=== PATIENT | male | born 1965 | race Caucasian/White ===

== ENCOUNTER 2018-01-10 12:41 | Inpatient (IN) | payer MEDICARE, OTHER ==
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
[2018-01-10] MEDS ORDERED: Haloperidol Lactate 5 mg/mL 1mL Vial IM STA (20:09)
[2018-01-10] MEDS ORDERED: Haloperidol Lactate 5 mg/mL 1mL Vial ONE (20:11)
[2018-01-10] MEDS ORDERED: Haloperidol Lactate 5 mg/mL 1mL Vial IM ONE (20:58)
[2018-01-10 21:25] VITALS: BP 132/80
[2018-01-10] MEDS ORDERED: Albuterol/Ipratropium Neb 3 ML AERS HHN PRN (22:37)
[2018-01-10] MEDS ORDERED: Non-Formulary Item 1 EA (Dextran 70/Hypromellose [Artificial Tears] 1 EACH) OP PRN (22:37)
[2018-01-10] MEDS ORDERED: Magnesium Hydroxide (MOM) 30 mL UDC PO PRN (22:37)
[2018-01-10] MEDS ORDERED: Maalox 30 mL Cup PO PRN (22:37)
[2018-01-10] MEDS: Acetaminophen 500 MG TAB PO PRN (23:10)
[2018-01-11] MEDS: risperiDONE 4 mg Tab PO SCH ×2 (09:10→17:02)
[2018-01-11] MEDS: Multivitamin w/ Minerals Tab PO SCH (09:10)
[2018-01-11] MEDS: Benztropine 1 MG TAB PO SCH ×2 (09:10→17:02)
--- NOTE | 2018-01-11 09:15 | History and Physical ---
History of Present Illness - HPI Chief Complaint: Increased in agitation HPI: This is a [facility]. He was send for evaluation due to increased in agitation. Vital Signs: Last Vital Signs Temp 97.7 F 01/11/18 06:42 Pulse 70 01/11/18 07:39 Resp 20 01/11/18 07:39 BP 115/67 01/11/18 06:42 Pulse Ox 95 01/11/18 07:39 Past Medical History Pulmonary: Report: Asthma BOARDMARKER: Report: Other (Schizophrenia) GI: Report: No Pertinent Hx Psych: Report: Schizophrenia Musculoskeletal: Report: Osteoarthritis, Weakness Infectious Disease: Report: No Pertinent Hx Renal/: Report: No Pertinent Hx Endocrine: Report: No Pertinent Hx Dermatology: Report: No Pertinent Hx - Past Surgical History Past Surgical History: No pertinent Hx Family Medical History - Family Member Mother History Unknown: Yes Social History Smoke: No Alcohol: None Drugs: None Lives: Intermediate Domestic Violence: Negative - Medications Home Medications: Home Medication Medication Instructions Recorded Type Acetaminophen [Tylenol Extra 500 mg PO Q4HR PRN 01/10/18 History Strength] Albuterol/Ipratropium Neb [Duoneb 3 ml HHN Q4HR PRN 01/10/18 History Neb] Ascorbic Acid [Vitamin C] 500 mg PO BID 01/10/18 History Aspirin EC [Ecotrin] 81 mg PO DAILY 01/10/18 History Baclofen [Lioresal*] 10 mg PO QID 01/10/18 History Benztropine [Cogentin*] 1 mg PO BID 01/10/18 History Bisacodyl 10 mg RC DAILY PRN 01/10/18 History Dextran 70/Hypromellose 1 each OP Q4H PRN 01/10/18 History [Artificial Tears] Mag Hydrox/Al Hydrox/Simeth 30 ml PO Q4H PRN 01/10/18 History [Maalox Advanced 355 ml] Magnesium Hydroxide [Milk of 30 ml PO DAILY PRN 01/10/18 History Magnesia] Multivitamin w/ Minerals 1 tab PO DAILY 01/10/18 History [Theragran M] Naproxen 250 mg PO Q4H PRN 01/10/18 History Niacin 500 mg PO HS 01/10/18 History OXcarbazepine [Trileptal] 150 mg PO Q12H 01/10/18 History Risperidone 4 mg PO BID 01/10/18 History Trazodone HCl 50 mg PO HS 01/10/18 History - Allergies Allergies/Adverse Reactions: Allergies Allergy/AdvReac Type Severity Reaction Status Date / Time clonazepam Allergy Verified 01/10/18 14:22 Review of Systems - Review of Systems Constitutional: Report: No Significant Eyes: Report: No Significant ENT: Report: No Significant Respiratory: Report: No Significant Cardiovascular: Report: No Significant Gastrointestinal: Report: No Significant Genitourinary: Report: No Significant Musculoskeletal: Report: No Significant Skin: Report: No Significant Neurological: Report: No Significant Physical Exam - Physical Exam HEENT: Report: Ears Nose Throat within normal limits Neck: Report: Within normal limits Cardiovascular Systems: Report: Regular, Rate and Rhythm Respiratory: Report: Breath Sounds are within normal limits Abdomen: Report: Non-tender to palpation Back: Report: Inspection of back is within normal limits. Extremities: Report: Non-tender to palpation. Skin: Report: Color of skin is within normal limits Neuro/Psych: Report: Disoriented to name time or place - Assessment Assessment: Current Active Problems Problem Status Onset AGGITATION AND DISRUPTIVE BEHAVIOR Acute Patient is awake, alert, calm. Dx: Increased in agitation, Psychosis, schizophrenia Asthma, Obesity - Plan Plan: Patient is under Psychiatric care, continue with SNF meds, Will continue to monitor.
[2018-01-11 19:52] LABS: % BASOPHILS 0.8 % (0.0-2.0); % EOSINOPHILS 3.2 % (0.0-5.0); % LYMPHOCYTES 32.8 % (20.0-50.0); % MONOCYTES 8.9 % (2.0-10.0); % NEUTROPHILS 54.3 % (40.0-80.0); BASOPHILE ABSOLUTE 0.1 Th/cumm (0-0.2); EOSINOPHILE ABSOLUTE 0.2 Th/cmm (0.1-0.4); HEMATOCRIT 38.5 % (41.0-60); HEMOGLOBIN 13.2 gm/dL (12-16); LYMPHOCYTE ABSOLUTE 2.4 Th/cmm (1.5-3.0); MEAN CELL VOLUME 90.9 fl (80-99); MEAN CORPUSCULAR HEMOGLOBIN 31.1 pg (26.0-30.0); MEAN CORPUSCULAR HGB CONC 34.2 pg (28.0-36.0); MEAN PLATELET VOLUME 6.8 fl; MONOCYTE ABSOLUTE 0.7 Th/cmm (0.3-1.0); PLATELET COUNT 267 Th/cmm (150-400); RED BLOOD COUNT 4.23 Mil/cmm (4.30-5.70); RED CELL DISTRIBUTION WIDTH 12.1 % (11.5-20.0); WHITE BLOOD COUNT 7.4 Th/cmm (4.8-10.8)
[2018-01-11 20:05] LABS: INR 0.91 (0.5-1.4); PROTHROMBIN TIME (TEST) 9.5 SECONDS (9.5-11.5)
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
[2018-01-12 08:18] LABS: % BASOPHILS 0.5 % (0.0-2.0); % LYMPHOCYTES 30.5 % (20.0-50.0); % MONOCYTES 8.3 % (2.0-10.0); % NEUTROPHILS 58.7 % (40.0-80.0); EOSINOPHILE ABSOLUTE 0.1 Th/cmm (0.1-0.4); HEMATOCRIT 40.7 % (41.0-60); HEMOGLOBIN 13.8 gm/dL (12-16); MEAN CELL VOLUME 91.3 fl (80-99); MEAN CORPUSCULAR HEMOGLOBIN 30.9 pg (26.0-30.0); MEAN CORPUSCULAR HGB CONC 33.9 pg (28.0-36.0); MEAN PLATELET VOLUME 7.2 fl; MONOCYTE ABSOLUTE 0.6 Th/cmm (0.3-1.0); PLATELET COUNT 269 Th/cmm (150-400); RED BLOOD COUNT 4.45 Mil/cmm (4.30-5.70); RED CELL DISTRIBUTION WIDTH 12.3 % (11.5-20.0); WHITE BLOOD COUNT 6.7 Th/cmm (4.8-10.8)
[2018-01-12] MEDS: Polyvinyl Alcohol Ophth Soln 15 mL Bottle EACH EYE PRN (08:19)
[2018-01-12] MEDS: Multivitamin w/ Minerals Tab PO SCH (08:20)
[2018-01-12] MEDS: risperiDONE 4 mg Tab PO SCH ×2 (08:20→16:45)
[2018-01-12] MEDS: Benztropine 1 MG TAB PO SCH ×2 (08:20→16:44)
[2018-01-12 08:44] LABS: ALB/GLOB RATIO 1.5 (1.0-1.8); ALBUMIN 4.3 gm/dL (4.2-5.5); ALKALINE PHOSPHATASE 46 U/L (34-104); ANION GAP 9.7 (7.0-16.0); BILIRUBIN,TOTAL 0.5 mg/dL (0.3-1.0); BUN - UREA NITROGEN 9 mg/dL (7-25); CALCIUM SERUM 9.6 mg/dL (8.6-10.3); CARBON DIOXIDE 28.7 mEq/L (21.0-31.0); CHLORIDE 100 mEq/L (98-107); CREATININE - SERUM 0.8 mg/dL (0.7-1.3); GFR AFRICAN-AMERICAN > 60.0 ml/min (>90); GFR NON AFRICAN-AMERICAN > 60.0 ml/min; GLUCOSE 116 mg/dL (70-105); POTASSIUM SERUM 3.4 mEq/L (3.5-5.1); SGOT 16 U/L (13-39); SGPT/ALT 11 U/L (7-52); SODIUM SERUM 135 mEq/L (136-145); TOTAL PROTEIN,SERUM 7.1 gm/dL (6.0-8.3)
--- NOTE | 2018-01-12 09:27 | General Progress Note ---
Subjective - Review of Systems Service Date: 01/12/18 Subjective: I want go home Objective - Results Result Diagrams: 01/12/18 07:00 01/12/18 07:00 Recent Labs: Laboratory Last Values WBC 6.7 Th/cmm (4.8-10.8) 01/12/18 07:00 RBC 4.45 Mil/cmm (4.30-5.70) 01/12/18 07:00 Hgb 13.8 gm/dL (12-16) 01/12/18 07:00 Hct 40.7 % (41.0-60) L 01/12/18 07:00 MCV 91.3 fl (80-99) 01/12/18 07:00 MCH 30.9 pg (26.0-30.0) H 01/12/18 07:00 MCHC Differential 33.9 pg (28.0-36.0) 01/12/18 07:00 RDW 12.3 % (11.5-20.0) 01/12/18 07:00 Plt Count 269 Th/cmm (150-400) 01/12/18 07:00 MPV 7.2 fl 01/12/18 07:00 Neutrophils % 58.7 % (40.0-80.0) 01/12/18 07:00 Lymphocytes % 30.5 % (20.0-50.0) 01/12/18 07:00 Monocytes % 8.3 % (2.0-10.0) 01/12/18 07:00 Eosinophils % 2.0 % (0.0-5.0) 01/12/18 07:00 Basophils % 0.5 % (0.0-2.0) 01/12/18 07:00 PT 9.5 SECONDS (9.5-11.5) 01/11/18 19:35 INR 0.91 (0.5-1.4) 01/11/18 19:35 PTT (Actin FS) 28.0 SECONDS (26.0-38.0) 01/11/18 19:35 Sodium 135 mEq/L (136-145) L 01/12/18 07:00 Potassium 3.4 mEq/L (3.5-5.1) L 01/12/18 07:00 Chloride 100 mEq/L (98-107) 01/12/18 07:00 Carbon Dioxide 28.7 mEq/L (21.0-31.0) 01/12/18 07:00 Anion Gap 9.7 (7.0-16.0) 01/12/18 07:00 BUN 9 mg/dL (7-25) 01/12/18 07:00 Creatinine 0.8 mg/dL (0.7-1.3) 01/12/18 07:00 Est GFR ( Amer) > 60.0 ml/min (>90) 01/12/18 07:00 Est GFR (Non-Af Amer) > 60.0 ml/min 01/12/18 07:00 BUN/Creatinine Ratio 11.3 01/12/18 07:00 Glucose 116 mg/dL (70-105) H 01/12/18 07:00 Calcium 9.6 mg/dL (8.6-10.3) 01/12/18 07:00 Total Bilirubin 0.5 mg/dL (0.3-1.0) 01/12/18 07:00 AST 16 U/L (13-39) 01/12/18 07:00 ALT 11 U/L (7-52) 01/12/18 07:00 Alkaline Phosphatase 46 U/L (34-104) 01/12/18 07:00 C-Reactive Protein 4.2 mg/dL (0.0-0.9) H 01/11/18 19:35 Total Protein 7.1 gm/dL (6.0-8.3) 01/12/18 07:00 Albumin 4.3 gm/dL (4.2-5.5) 01/12/18 07:00 Globulin 2.8 gm/dL 01/12/18 07:00 Albumin/Globulin Ratio 1.5 (1.0-1.8) 01/12/18 07:00 TSH 2.10 uIU/ml (0.34-5.60) 01/12/18 07:00 - Physical Exam Vitals and I&O: Vital Signs Temp 97.9 F 01/12/18 05:50 Pulse 58 01/12/18 05:50 Resp 20 01/12/18 05:50 BP 129/64 01/12/18 05:50 Pulse Ox 100 01/12/18 05:50 Intake & Output 01/11/18 01/12/1801/12/18 18:59 06:59 18:59 Intake Total 240 Balance 240 Weight (lbs) 129.274 kg Intake: Oral 240 Other: # Voids 3 # Bowel Movements 0 Active Medications: Current Medications Acetaminophen (Tylenol Extra Strength) 500 mg PO Q4HR PRN PRN Reason: MILD PAIN Stop: 03/11/18 22:36 Last Admin: 01/10/18 23:10 Dose: 500 mg Al Hydrox/Mg Hydrox/Simethicone (Maalox) 30 ml PO Q4H PRN PRN Reason: Heartburn Stop: 03/11/18 22:36 Albuterol/Ipratropium (Duoneb Neb) 3 ml HHN Q4HR PRN PRN Reason: COPD Stop: 03/11/18 22:36 Artificial Tears (Artificial Tears Ophth Soln) 1 drop EACH EYE Q4HR PRN PRN Reason: Dry Eye Stop: 03/12/18 11:03 Last Admin: 01/12/18 08:19 Dose: 1 drop Ascorbic Acid (Vitamin C) 500 mg PO BID HERMILO Stop: 03/12/18 08:59 Last Admin: 01/12/18 08:20 Dose: 500 mg Aspirin (Ecotrin) 81 mg PO DAILY HERMILO Stop: 03/12/18 08:59 Last Admin: 01/12/18 08:20 Dose: 81 mg Baclofen (Lioresal) 10 mg PO QID HERMILO Stop: 03/12/18 08:59 Last Admin: 01/12/18 08:20 Dose: 10 mg Benztropine Mesylate (Cogentin) 1 mg PO BID HERMILO Stop: 03/12/18 08:59 Last Admin: 01/12/18 08:20 Dose: 1 mg Bisacodyl (Dulcolax 10 Mg Supp) 10 mg RC DAILY PRN PRN Reason: Constipation Stop: 03/11/18 22:36 Magnesium Hydroxide (Milk Of Magnesia) 30 ml PO DAILY PRN PRN Reason: Constipation Stop: 03/11/18 22:36 Naproxen (Naprosyn) 250 mg PO Q4H PRN PRN Reason: MOD PAIN Stop: 03/11/18 22:36 Niacin (Vitamin B3) 500 mg PO HS HERMILO Stop: 03/12/18 20:59 Last Admin: 01/11/18 21:58 Dose: 500 mg Oxcarbazepine (Trileptal) 150 mg PO Q12H HERMILO PRN Reason: Protocol Stop: 03/11/18 22:44 Last Admin: 01/11/18 23:00 Dose: 150 mg Risperidone (Risperdal) 4 mg PO BID HERMILO PRN Reason: Protocol Stop: 03/12/18 08:59 Last Admin: 01/12/18 08:20 Dose: 4 mg Trazodone HCl (Desyrel) 50 mg PO HS HERMILO PRN Reason: Protocol Stop: 03/12/18 20:59 Last Admin: 01/11/18 21:58 Dose: 50 mg Zolpidem Tartrate (Ambien) 5 mg PO HS PRN PRN Reason: Insomnia Stop: 03/11/18 21:04 General: Alert, Other (Confused) HEENT: Atraumatic, PERRLA Neck: Supple Cardiovascular: Regular rate Lungs: Clear to auscultation Abdomen: Bowel sounds, Soft Neurological: Normal gait Skin: Other (Warm and dry) Psych/Mental Status: Other (Confused, not oriented) Assessment/Plan - Problem List Patient Problems: All Active Problems AGGITATION AND DISRUPTIVE BEHAVIOR (Acute) - Assessment Assessment: Current Active Problems Problem Status Onset AGGITATION AND DISRUPTIVE BEHAVIOR Acute Patient is awake, alert, calm. Dx: Increased in agitation, Psychosis, schizophrenia Asthma, Obesity. - Plan Plan: Patient is under Psychiatric care, continue with SNF meds, Will continue to monitor.
--- NOTE | 2018-01-13 03:57 | Progress Notes ---
DATE: 01/12/2018 PSYCHIATRIC PROGRESS NOTE Staff was spoken. The patient is interviewed. Mood is noted to be irritable. Affect is constricted. Insight and judgment at this time are noted to be still impaired. Impulse control is noted to be poor. Coping skills are noted to be very poor. The patient is being currently maintained on Risperdal and oxcarbazepine, but continues to be irritable and angry and is very-very unpredictable, impulsive and hence the patient is not ready to be discharged to a lower level of care. The patient is going to be closely monitored and followed up. JOB# [id number]
[2018-01-13] MEDS: risperiDONE 4 mg Tab PO SCH ×2 (09:29→17:30)
[2018-01-13] MEDS: Benztropine 1 MG TAB PO SCH ×2 (09:30→17:30)
[2018-01-13] MEDS: Multivitamin w/ Minerals Tab PO SCH (09:30)
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
[2018-01-13] MEDS: Acetaminophen 500 MG TAB PO PRN (21:41)
--- NOTE | 2018-01-14 05:31 | Progress Notes ---
DATE: 01/13/2018 PSYCHIATRIC PROGRESS NOTE SUBJECTIVE: Staff was spoken to. The patient is interviewed. Mood is irritable. Affect is constricted. Coping skills at this time to be poor. Insight and judgment are noted to be poor. The patient has been having difficult time to cope with the stress. Impulsivity is the major concern. The patient is reporting that he has talked with someone, because he did not agree with whatever they were saying. ASSESSMENT: The patient is still impulsive. PLAN: To continue patient with the current medications and follow up with the supportive therapy. JOB# [id number]
[2018-01-14] MEDS: Multivitamin w/ Minerals Tab PO SCH (08:59)
[2018-01-14] MEDS: Benztropine 1 MG TAB PO SCH ×2 (08:59→16:21)
[2018-01-14] MEDS: risperiDONE 4 mg Tab PO SCH ×2 (08:59→16:21)
[2018-01-14] MEDS: Polyvinyl Alcohol Ophth Soln 15 mL Bottle EACH EYE PRN (09:00)
--- NOTE | 2018-01-14 09:06 | General Progress Note ---
Subjective - Review of Systems Service Date: 01/14/18 Subjective: I want go home Objective - Results Result Diagrams: 01/12/18 07:00 01/12/18 07:00 Recent Labs: Laboratory Last Values WBC 6.7 Th/cmm (4.8-10.8) 01/12/18 07:00 RBC 4.45 Mil/cmm (4.30-5.70) 01/12/18 07:00 Hgb 13.8 gm/dL (12-16) 01/12/18 07:00 Hct 40.7 % (41.0-60) L 01/12/18 07:00 MCV 91.3 fl (80-99) 01/12/18 07:00 MCH 30.9 pg (26.0-30.0) H 01/12/18 07:00 MCHC Differential 33.9 pg (28.0-36.0) 01/12/18 07:00 RDW 12.3 % (11.5-20.0) 01/12/18 07:00 Plt Count 269 Th/cmm (150-400) 01/12/18 07:00 MPV 7.2 fl 01/12/18 07:00 Neutrophils % 58.7 % (40.0-80.0) 01/12/18 07:00 Lymphocytes % 30.5 % (20.0-50.0) 01/12/18 07:00 Monocytes % 8.3 % (2.0-10.0) 01/12/18 07:00 Eosinophils % 2.0 % (0.0-5.0) 01/12/18 07:00 Basophils % 0.5 % (0.0-2.0) 01/12/18 07:00 PT 9.5 SECONDS (9.5-11.5) 01/11/18 19:35 INR 0.91 (0.5-1.4) 01/11/18 19:35 PTT (Actin FS) 28.0 SECONDS (26.0-38.0) 01/11/18 19:35 Sodium 135 mEq/L (136-145) L 01/12/18 07:00 Potassium 3.4 mEq/L (3.5-5.1) L 01/12/18 07:00 Chloride 100 mEq/L (98-107) 01/12/18 07:00 Carbon Dioxide 28.7 mEq/L (21.0-31.0) 01/12/18 07:00 Anion Gap 9.7 (7.0-16.0) 01/12/18 07:00 BUN 9 mg/dL (7-25) 01/12/18 07:00 Creatinine 0.8 mg/dL (0.7-1.3) 01/12/18 07:00 Est GFR ( Amer) > 60.0 ml/min (>90) 01/12/18 07:00 Est GFR (Non-Af Amer) > 60.0 ml/min 01/12/18 07:00 BUN/Creatinine Ratio 11.3 01/12/18 07:00 Glucose 116 mg/dL (70-105) H 01/12/18 07:00 Calcium 9.6 mg/dL (8.6-10.3) 01/12/18 07:00 Total Bilirubin 0.5 mg/dL (0.3-1.0) 01/12/18 07:00 AST 16 U/L (13-39) 01/12/18 07:00 ALT 11 U/L (7-52) 01/12/18 07:00 Alkaline Phosphatase 46 U/L (34-104) 01/12/18 07:00 C-Reactive Protein 4.2 mg/dL (0.0-0.9) H 01/11/18 19:35 Total Protein 7.1 gm/dL (6.0-8.3) 01/12/18 07:00 Albumin 4.3 gm/dL (4.2-5.5) 01/12/18 07:00 Globulin 2.8 gm/dL 01/12/18 07:00 Albumin/Globulin Ratio 1.5 (1.0-1.8) 01/12/18 07:00 TSH 2.10 uIU/ml (0.34-5.60) 01/12/18 07:00 - Physical Exam Vitals and I&O: Vital Signs Temp 96.6 F 01/13/18 13:51 Pulse 74 01/14/18 07:15 Resp 18 01/14/18 07:15 BP 123/73 01/13/18 13:51 Pulse Ox 96 01/14/18 07:15 Intake & Output 01/13/18 01/14/1801/14/18 18:59 06:59 18:59 Intake Total 1200 Balance 1200 Intake: Oral 1200 Other: # Voids 3 # Bowel Movements 1 Active Medications: Current Medications Acetaminophen (Tylenol Extra Strength) 500 mg PO Q4HR PRN PRN Reason: MILD PAIN Stop: 03/11/18 22:36 Last Admin: 01/13/18 21:41 Dose: 500 mg Al Hydrox/Mg Hydrox/Simethicone (Maalox) 30 ml PO Q4H PRN PRN Reason: Heartburn Stop: 03/11/18 22:36 Albuterol/Ipratropium (Duoneb Neb) 3 ml HHN Q4HR PRN PRN Reason: COPD Stop: 03/11/18 22:36 Last Admin: 01/12/18 21:55 Dose: 3 ml Artificial Tears (Artificial Tears Ophth Soln) 1 drop EACH EYE Q4HR PRN PRN Reason: Dry Eye Stop: 03/12/18 11:03 Last Admin: 01/14/18 09:00 Dose: 1 drop Ascorbic Acid (Vitamin C) 500 mg PO BID [facility] Stop: 03/12/18 08:59 Last Admin: 01/14/18 08:59 Dose: 500 mg Aspirin (Ecotrin) 81 mg PO DAILY [facility] Stop: 03/12/18 08:59 Last Admin: 01/14/18 08:59 Dose: 81 mg Baclofen (Lioresal) 10 mg PO QID [facility] Stop: 03/12/18 08:59 Last Admin: 01/14/18 08:59 Dose: 10 mg Benztropine Mesylate (Cogentin) 1 mg PO BID [facility] Stop: 03/12/18 08:59 Last Admin: 01/14/18 08:59 Dose: 1 mg Bisacodyl (Dulcolax 10 Mg Supp) 10 mg RC DAILY PRN PRN Reason: Constipation Stop: 03/11/18 22:36 Magnesium Hydroxide (Milk Of Magnesia) 30 ml PO DAILY PRN PRN Reason: Constipation Stop: 03/11/18 22:36 Naproxen (Naprosyn) 250 mg PO Q4H PRN PRN Reason: MOD PAIN Stop: 03/11/18 22:36 Niacin (Vitamin B3) 500 mg PO HS [facility] Stop: 03/12/18 20:59 Last Admin: 01/13/18 21:08 Dose: Not Given Oxcarbazepine (Trileptal) 150 mg PO Q12H HERMILO PRN Reason: Protocol Stop: 03/11/18 22:44 Last Admin: 01/13/18 22:56 Dose: 150 mg Risperidone (Risperdal) 4 mg PO BID [facility] PRN Reason: Protocol Stop: 03/12/18 08:59 Last Admin: 01/14/18 08:59 Dose: 4 mg Trazodone HCl (Desyrel) 50 mg PO HS HERMILO PRN Reason: Protocol Stop: 03/12/18 20:59 Last Admin: 01/13/18 21:08 Dose: Not Given Zolpidem Tartrate (Ambien) 5 mg PO HS PRN PRN Reason: Insomnia Stop: 03/11/18 21:04 General: Alert, Other (Confused) HEENT: Atraumatic, PERRLA Neck: Supple Cardiovascular: Regular rate Lungs: Clear to auscultation Abdomen: Bowel sounds, Soft Neurological: Normal gait Skin: Other (Warm and dry) Psych/Mental Status: Other (Confused, not oriented) Assessment/Plan - Problem List Patient Problems: All Active Problems AGGITATION AND DISRUPTIVE BEHAVIOR (Acute) - Assessment Assessment: Current Active Problems Problem Status Onset AGGITATION AND DISRUPTIVE BEHAVIOR Acute Patient is awake, alert, calm. Dx: Increased in agitation, Psychosis, schizophrenia Asthma, Obesity. - Plan Plan: Patient is under Psychiatric care, continue with SNF meds, Will continue to monitor. Nutritional Asmnt/Malnutr-PDOC - Dietary Evaluation Malnutrition Findings (Please click <Entered> for more info): Nutritional Asmnt/Malnutrition Start: 01/12/18 17: 19 Text: Status: Complete Freq: Document 01/12/18 17:19 LCHENG (Rec: 01/12/18 17:25 [email or web address]) Nutritional Asmnt/Malnutrition Patient General Information Nutritional Screening Moderate Risk Consult Pertinent Medical Hx/Surgical Hx schizophrenia, OA, weakness, asthma Subjective Information Consult received for wound. Pt seen resting in bed at time of visit. Per EMR, PO intake 100% so fat. Spoke with RN, pt has no problem of eating. Current Diet Order/ Nutrition Support mech soft chopped Pertinent Medications cit C, vit B3 Pertinent Labs 01/12 Na 135, K 3.4, glucose 116 Nutritional Hx/Data Height 1.91 m Height (Calculated Centimeters) 190.5 Current Weight (lbs) 129.274 kg Weight (Calculated Kilograms) 129.3 Weight (Calculated Grams) 869600.8 [place] Body Weight 196 Body Mass Index (BMI) 35.6 Weight Status Obese GI Symptoms GI Symptoms None Last BM 0 Difficult in: None Skin Integrity/Comment: right foot wound-acute on chronic wuond Current %PO Good (75-100%) Estimated Nutritional Goals BEE in Kcals: Adj wt of IBW Calories/Kcals/Kg 25-30 Kcals Calculated 0346-9305 Protein: Adj wt of IBW Protein g/k Protein Calculated 99 Fluid: ml 2475-2970ml (1ml/kcal) Nutritional Problem 1. Problem Problem increased nutrition needs ( protein( Etiology increased metabolic demand for wound healing Signs/Symptoms: acute on chronic wound on right foot Malnutrition Alert Protein-Calorie Malnutrition N/A Is there a minimum of two criteria No selected? Query Text:Check all the applicable criteria. A minimum of two criteria are recommended for diagnosis of either severe or non-severe malnutrition. Intervention/Recommendation Comments 1. Continue with current diet as ordered. 2. Monitor PO intake, wt, labs and skin integrity 3. F/U as low risk in 7 dyas, 01/19, PO check 01/14 Expected Outcomes/Goals Expected Outcomes/Goals 1. PO intake to meet at least 75% of nutritional needs. 2. Wt stability, skin to remain intact, labs to approach WNL.
[2018-01-14] MEDS: Acetaminophen 500 MG TAB PO PRN (19:05)
--- NOTE | 2018-01-14 22:30 | Progress Notes ---
DATE: 01/14/2018 Staff was spoken to. The patient is interviewed. Mood is noted to be irritable. Affect is constricted. Insight and judgment at this time are noted to be still impaired. Impulse control is noted to be poor. Coping skills are also noted to be very poor. The patient has been having acute mood swings. The patient is still impulsive and is not able to contract for safety, in view of his impulsivity, it is decided to increase the dose on the Trileptal to 300 mg twice a day and follow the patient with the supportive therapy. JOB# [id number]
--- NOTE | 2018-01-15 09:00 | General Progress Note ---
Subjective - Review of Systems Service Date: 01/15/18 Subjective: I want go home Objective - Results Result Diagrams: 01/12/18 07:00 01/12/18 07:00 Recent Labs: Laboratory Last Values WBC 6.7 Th/cmm (4.8-10.8) 01/12/18 07:00 RBC 4.45 Mil/cmm (4.30-5.70) 01/12/18 07:00 Hgb 13.8 gm/dL (12-16) 01/12/18 07:00 Hct 40.7 % (41.0-60) L 01/12/18 07:00 MCV 91.3 fl (80-99) 01/12/18 07:00 MCH 30.9 pg (26.0-30.0) H 01/12/18 07:00 MCHC Differential 33.9 pg (28.0-36.0) 01/12/18 07:00 RDW 12.3 % (11.5-20.0) 01/12/18 07:00 Plt Count 269 Th/cmm (150-400) 01/12/18 07:00 MPV 7.2 fl 01/12/18 07:00 Neutrophils % 58.7 % (40.0-80.0) 01/12/18 07:00 Lymphocytes % 30.5 % (20.0-50.0) 01/12/18 07:00 Monocytes % 8.3 % (2.0-10.0) 01/12/18 07:00 Eosinophils % 2.0 % (0.0-5.0) 01/12/18 07:00 Basophils % 0.5 % (0.0-2.0) 01/12/18 07:00 PT 9.5 SECONDS (9.5-11.5) 01/11/18 19:35 INR 0.91 (0.5-1.4) 01/11/18 19:35 PTT (Actin FS) 28.0 SECONDS (26.0-38.0) 01/11/18 19:35 Sodium 135 mEq/L (136-145) L 01/12/18 07:00 Potassium 3.4 mEq/L (3.5-5.1) L 01/12/18 07:00 Chloride 100 mEq/L (98-107) 01/12/18 07:00 Carbon Dioxide 28.7 mEq/L (21.0-31.0) 01/12/18 07:00 Anion Gap 9.7 (7.0-16.0) 01/12/18 07:00 BUN 9 mg/dL (7-25) 01/12/18 07:00 Creatinine 0.8 mg/dL (0.7-1.3) 01/12/18 07:00 Est GFR ( Amer) > 60.0 ml/min (>90) 01/12/18 07:00 Est GFR (Non-Af Amer) > 60.0 ml/min 01/12/18 07:00 BUN/Creatinine Ratio 11.3 01/12/18 07:00 Glucose 116 mg/dL (70-105) H 01/12/18 07:00 Calcium 9.6 mg/dL (8.6-10.3) 01/12/18 07:00 Total Bilirubin 0.5 mg/dL (0.3-1.0) 01/12/18 07:00 AST 16 U/L (13-39) 01/12/18 07:00 ALT 11 U/L (7-52) 01/12/18 07:00 Alkaline Phosphatase 46 U/L (34-104) 01/12/18 07:00 C-Reactive Protein 4.2 mg/dL (0.0-0.9) H 01/11/18 19:35 Total Protein 7.1 gm/dL (6.0-8.3) 01/12/18 07:00 Albumin 4.3 gm/dL (4.2-5.5) 01/12/18 07:00 Globulin 2.8 gm/dL 01/12/18 07:00 Albumin/Globulin Ratio 1.5 (1.0-1.8) 01/12/18 07:00 TSH 2.10 uIU/ml (0.34-5.60) 01/12/18 07:00 - Physical Exam Vitals and I&O: Vital Signs Temp 98.8 F 01/15/18 05:18 Pulse 41 01/15/18 05:18 Resp 20 01/15/18 05:18 BP 142/51 01/15/18 05:18 Pulse Ox 98 01/15/18 05:18 Intake & Output 01/14/18 01/15/1801/15/18 18:59 06:59 18:59 Intake Total 1000 570 Balance 1000 570 Intake: Oral 1000 570 Other: # Voids 3 1 # Bowel Movements 0 Active Medications: Current Medications Acetaminophen (Tylenol Extra Strength) 500 mg PO Q4HR PRN PRN Reason: MILD PAIN Stop: 03/11/18 22:36 Last Admin: 01/14/18 19:05 Dose: 500 mg Al Hydrox/Mg Hydrox/Simethicone (Maalox) 30 ml PO Q4H PRN PRN Reason: Heartburn Stop: 03/11/18 22:36 Albuterol/Ipratropium (Duoneb Neb) 3 ml HHN Q4HR PRN PRN Reason: COPD Stop: 03/11/18 22:36 Last Admin: 01/12/18 21:55 Dose: 3 ml Artificial Tears (Artificial Tears Ophth Soln) 1 drop EACH EYE Q4HR PRN PRN Reason: Dry Eye Stop: 03/12/18 11:03 Last Admin: 01/14/18 09:00 Dose: 1 drop Ascorbic Acid (Vitamin C) 500 mg PO BID [facility] Stop: 03/12/18 08:59 Last Admin: 01/14/18 16:21 Dose: 500 mg Aspirin (Ecotrin) 81 mg PO DAILY [facility] Stop: 03/12/18 08:59 Last Admin: 01/14/18 08:59 Dose: 81 mg Baclofen (Lioresal) 10 mg PO QID [facility] Stop: 03/12/18 08:59 Last Admin: 01/14/18 20:09 Dose: 10 mg Benztropine Mesylate (Cogentin) 1 mg PO BID [facility] Stop: 03/12/18 08:59 Last Admin: 01/14/18 16:21 Dose: 1 mg Bisacodyl (Dulcolax 10 Mg Supp) 10 mg RC DAILY PRN PRN Reason: Constipation Stop: 03/11/18 22:36 Magnesium Hydroxide (Milk Of Magnesia) 30 ml PO DAILY PRN PRN Reason: Constipation Stop: 03/11/18 22:36 Naproxen (Naprosyn) 250 mg PO Q4H PRN PRN Reason: MOD PAIN Stop: 03/11/18 22:36 Niacin (Vitamin B3) 500 mg PO HS [facility] Stop: 03/12/18 20:59 Last Admin: 01/14/18 20:09 Dose: 500 mg Oxcarbazepine (Trileptal) 300 mg PO Q12H [facility]MILO PRN Reason: Protocol Stop: 03/15/18 13:29 Last Admin: 01/15/18 01:30 Dose: Not Given Risperidone (Risperdal) 4 mg PO BID [facility] PRN Reason: Protocol Stop: 03/12/18 08:59 Last Admin: 01/14/18 16:21 Dose: 4 mg Trazodone HCl (Desyrel) 50 mg PO HS [facility] PRN Reason: Protocol Stop: 03/12/18 20:59 Last Admin: 01/14/18 20:09 Dose: 50 mg Zolpidem Tartrate (Ambien) 5 mg PO HS PRN PRN Reason: Insomnia Stop: 03/11/18 21:04 General: Alert, Other (Confused) HEENT: Atraumatic, PERRLA Neck: Supple Cardiovascular: Regular rate Lungs: Clear to auscultation Abdomen: Bowel sounds, Soft Neurological: Normal gait Skin: Other (Warm and dry) Psych/Mental Status: Other (Confused, not oriented) Assessment/Plan - Problem List Patient Problems: All Active Problems AGGITATION AND DISRUPTIVE BEHAVIOR (Acute) - Assessment Assessment: Current Active Problems Problem Status Onset AGGITATION AND DISRUPTIVE BEHAVIOR Acute Patient is awake, alert, calm. Dx: Increased in agitation, Psychosis, schizophrenia Asthma, Obesity. - Plan Plan: Patient is under Psychiatric care, continue with SNF meds, Will continue to monitor. Nutritional Asmnt/Malnutr-PDOC - Dietary Evaluation Malnutrition Findings (Please click <Entered> for more info): Nutritional Asmnt/Malnutrition Start: 01/12/18 17: 19 Text: Status: Complete Freq: Document 01/12/18 17:19 LCHENG (Rec: 01/12/18 17:25 LCHENG [email or web address]) Nutritional Asmnt/Malnutrition Patient General Information Nutritional Screening Moderate Risk Consult Pertinent Medical Hx/Surgical Hx schizophrenia, OA, weakness, asthma Subjective Information Consult received for wound. Pt seen resting in bed at time of visit. Per EMR, PO intake 100% so fat. Spoke with RN, pt has no problem of eating. Current Diet Order/ Nutrition Support mech soft chopped Pertinent Medications cit C, vit B3 Pertinent Labs 01/12 Na 135, K 3.4, glucose 116 Nutritional Hx/Data Height 1.91 m Height (Calculated Centimeters) 190.5 Current Weight (lbs) 129.274 kg Weight (Calculated Kilograms) 129.3 Weight (Calculated Grams) 509278.8 [place] Body Weight 196 Body Mass Index (BMI) 35.6 Weight Status Obese GI Symptoms GI Symptoms None Last BM 0 Difficult in: None Skin Integrity/Comment: right foot wound-acute on chronic wuond Current %PO Good (75-100%) Estimated Nutritional Goals BEE in Kcals: Adj wt of IBW Calories/Kcals/Kg 25-30 Kcals Calculated 0616-9158 Protein: Adj wt of IBW Protein g/k Protein Calculated 99 Fluid: ml 2475-2970ml (1ml/kcal) Nutritional Problem 1. Problem Problem increased nutrition needs ( protein( Etiology increased metabolic demand for wound healing Signs/Symptoms: acute on chronic wound on right foot Malnutrition Alert Protein-Calorie Malnutrition N/A Is there a minimum of two criteria No selected? Query Text:Check all the applicable criteria. A minimum of two criteria are recommended for diagnosis of either severe or non-severe malnutrition. Intervention/Recommendation Comments 1. Continue with current diet as ordered. 2. Monitor PO intake, wt, labs and skin integrity 3. F/U as low risk in 7 dyas, 01/19, PO check 01/14 Expected Outcomes/Goals Expected Outcomes/Goals 1. PO intake to meet at least 75% of nutritional needs. 2. Wt stability, skin to remain intact, labs to approach WNL.
[2018-01-15] MEDS: Multivitamin w/ Minerals Tab PO SCH (09:13)
[2018-01-15] MEDS: Benztropine 1 MG TAB PO SCH ×2 (09:13→17:43)
[2018-01-15] MEDS: risperiDONE 4 mg Tab PO SCH ×2 (09:13→17:43)
--- NOTE | 2018-01-15 15:51 | Progress Notes ---
DATE: 01/15/2018 PSYCHIATRIC PROGRESS NOTE SUBJECTIVE: Staff was spoken to. The patient is interviewed. Mood is noted to be irritable. Affect is constricted. The patient's impulsivity seems to be coming under control. No side effects to the medications are noted. The patient is currently on Risperdal 4 mg twice a day and also carbamazepine 300 mg twice a day. No side effects to medications are noted. The patient is stating that she has been trying to get into the groups and get some help. No side effects to the medications are noted at this time. ASSESSMENT AND PLAN: The patient is still going to be closely monitored at this time and is going to be working with the case management with regards to placement of this patient. The patient is not ready to be return to the facility because of the patient's aggressive behavior at this time. JOB# [id number]
--- NOTE | 2018-01-16 09:19 | General Progress Note ---
Subjective - Review of Systems Service Date: 01/16/18 Subjective: I want go home Objective - Results Result Diagrams: 01/12/18 07:00 01/12/18 07:00 Recent Labs: Laboratory Last Values WBC 6.7 Th/cmm (4.8-10.8) 01/12/18 07:00 RBC 4.45 Mil/cmm (4.30-5.70) 01/12/18 07:00 Hgb 13.8 gm/dL (12-16) 01/12/18 07:00 Hct 40.7 % (41.0-60) L 01/12/18 07:00 MCV 91.3 fl (80-99) 01/12/18 07:00 MCH 30.9 pg (26.0-30.0) H 01/12/18 07:00 MCHC Differential 33.9 pg (28.0-36.0) 01/12/18 07:00 RDW 12.3 % (11.5-20.0) 01/12/18 07:00 Plt Count 269 Th/cmm (150-400) 01/12/18 07:00 MPV 7.2 fl 01/12/18 07:00 Neutrophils % 58.7 % (40.0-80.0) 01/12/18 07:00 Lymphocytes % 30.5 % (20.0-50.0) 01/12/18 07:00 Monocytes % 8.3 % (2.0-10.0) 01/12/18 07:00 Eosinophils % 2.0 % (0.0-5.0) 01/12/18 07:00 Basophils % 0.5 % (0.0-2.0) 01/12/18 07:00 PT 9.5 SECONDS (9.5-11.5) 01/11/18 19:35 INR 0.91 (0.5-1.4) 01/11/18 19:35 PTT (Actin FS) 28.0 SECONDS (26.0-38.0) 01/11/18 19:35 Sodium 135 mEq/L (136-145) L 01/12/18 07:00 Potassium 3.4 mEq/L (3.5-5.1) L 01/12/18 07:00 Chloride 100 mEq/L (98-107) 01/12/18 07:00 Carbon Dioxide 28.7 mEq/L (21.0-31.0) 01/12/18 07:00 Anion Gap 9.7 (7.0-16.0) 01/12/18 07:00 BUN 9 mg/dL (7-25) 01/12/18 07:00 Creatinine 0.8 mg/dL (0.7-1.3) 01/12/18 07:00 Est GFR ( Amer) > 60.0 ml/min (>90) 01/12/18 07:00 Est GFR (Non-Af Amer) > 60.0 ml/min 01/12/18 07:00 BUN/Creatinine Ratio 11.3 01/12/18 07:00 Glucose 116 mg/dL (70-105) H 01/12/18 07:00 Calcium 9.6 mg/dL (8.6-10.3) 01/12/18 07:00 Total Bilirubin 0.5 mg/dL (0.3-1.0) 01/12/18 07:00 AST 16 U/L (13-39) 01/12/18 07:00 ALT 11 U/L (7-52) 01/12/18 07:00 Alkaline Phosphatase 46 U/L (34-104) 01/12/18 07:00 C-Reactive Protein 4.2 mg/dL (0.0-0.9) H 01/11/18 19:35 Total Protein 7.1 gm/dL (6.0-8.3) 01/12/18 07:00 Albumin 4.3 gm/dL (4.2-5.5) 01/12/18 07:00 Globulin 2.8 gm/dL 01/12/18 07:00 Albumin/Globulin Ratio 1.5 (1.0-1.8) 01/12/18 07:00 TSH 2.10 uIU/ml (0.34-5.60) 01/12/18 07:00 - Physical Exam Vitals and I&O: Vital Signs Temp 97.8 F 01/16/18 05:55 Pulse 63 01/16/18 07:58 Resp 16 01/16/18 07:58 BP 107/55 01/16/18 05:55 Pulse Ox 96 01/16/18 07:58 Intake & Output 01/15/18 01/16/1801/16/18 18:59 06:59 18:59 Intake Total 240 Balance 240 Weight (lbs) 129.274 kg Intake: Oral 240 Other: # Voids 3 # Bowel Movements 0 Weight Source Bedscale Active Medications: Current Medications Acetaminophen (Tylenol Extra Strength) 500 mg PO Q4HR PRN PRN Reason: MILD PAIN Stop: 03/11/18 22:36 Last Admin: 01/14/18 19:05 Dose: 500 mg Al Hydrox/Mg Hydrox/Simethicone (Maalox) 30 ml PO Q4H PRN PRN Reason: Heartburn Stop: 03/11/18 22:36 Albuterol/Ipratropium (Duoneb Neb) 3 ml HHN Q4HR PRN PRN Reason: COPD Stop: 03/11/18 22:36 Last Admin: 01/12/18 21:55 Dose: 3 ml Artificial Tears (Artificial Tears Ophth Soln) 1 drop EACH EYE Q4HR PRN PRN Reason: Dry Eye Stop: 03/12/18 11:03 Last Admin: 01/14/18 09:00 Dose: 1 drop Ascorbic Acid (Vitamin C) 500 mg PO BID [facility] Stop: 03/12/18 08:59 Last Admin: 01/15/18 17:44 Dose: 500 mg Aspirin (Ecotrin) 81 mg PO DAILY [facility] Stop: 03/12/18 08:59 Last Admin: 01/15/18 09:13 Dose: 81 mg Baclofen (Lioresal) 10 mg PO QID [facility] Stop: 03/12/18 08:59 Last Admin: 01/15/18 20:24 Dose: 10 mg Benztropine Mesylate (Cogentin) 1 mg PO BID [facility] Stop: 03/12/18 08:59 Last Admin: 01/15/18 17:43 Dose: 1 mg Bisacodyl (Dulcolax 10 Mg Supp) 10 mg RC DAILY PRN PRN Reason: Constipation Stop: 03/11/18 22:36 Magnesium Hydroxide (Milk Of Magnesia) 30 ml PO DAILY PRN PRN Reason: Constipation Stop: 03/11/18 22:36 Naproxen (Naprosyn) 250 mg PO Q4H PRN PRN Reason: MOD PAIN Stop: 03/11/18 22:36 Niacin (Vitamin B3) 500 mg PO HS [facility] Stop: 03/12/18 20:59 Last Admin: 01/15/18 20:24 Dose: Not Given Oxcarbazepine (Trileptal) 300 mg PO Q12HR HERMILO PRN Reason: Protocol Stop: 03/17/18 08:59 Risperidone (Risperdal) 4 mg PO BID [facility] PRN Reason: Protocol Stop: 03/12/18 08:59 Last Admin: 01/15/18 17:43 Dose: 4 mg Trazodone HCl (Desyrel) 50 mg PO HS [facility]O PRN Reason: Protocol Stop: 03/12/18 20:59 Last Admin: 01/15/18 20:25 Dose: 50 mg Zolpidem Tartrate (Ambien) 5 mg PO HS PRN PRN Reason: Insomnia Stop: 03/11/18 21:04 Last Admin: 01/15/18 20:25 Dose: 5 mg General: Alert, Other (Confused) HEENT: Atraumatic, PERRLA Neck: Supple Cardiovascular: Regular rate Lungs: Clear to auscultation Abdomen: Bowel sounds, Soft Neurological: Normal gait Skin: Other (Warm and dry) Psych/Mental Status: Other (Confused, not oriented) Assessment/Plan - Problem List Patient Problems: All Active Problems AGGITATION AND DISRUPTIVE BEHAVIOR (Acute) - Assessment Assessment: Current Active Problems Problem Status Onset AGGITATION AND DISRUPTIVE BEHAVIOR Acute Patient is awake, alert, calm. Dx: Increased in agitation, Psychosis, schizophrenia Asthma, Obesity. - Plan Plan: Patient is under Psychiatric care, continue with SNF meds, Will continue to monitor. Nutritional Asmnt/Malnutr-PDOC - Dietary Evaluation Malnutrition Findings (Please click <Entered> for more info): Nutritional Asmnt/Malnutrition Start: 01/12/18 17: 19 Text: Status: Complete Freq: Document 01/12/18 17:19 LCHENG (Rec: 01/12/18 17:25 LCHENG [email or web address]) Nutritional Asmnt/Malnutrition Patient General Information Nutritional Screening Moderate Risk Consult Pertinent Medical Hx/Surgical Hx schizophrenia, OA, weakness, asthma Subjective Information Consult received for wound. Pt seen resting in bed at time of visit. Per EMR, PO intake 100% so fat. Spoke with RN, pt has no problem of eating. Current Diet Order/ Nutrition Support [place] soft chopped Pertinent Medications cit C, vit B3 Pertinent Labs 01/12 Na 135, K 3.4, glucose 116 Nutritional Hx/Data Height 1.91 m Height (Calculated Centimeters) 190.5 Current Weight (lbs) 129.274 kg Weight (Calculated Kilograms) 129.3 Weight (Calculated Grams) 598149.8 [place] Body Weight 196 Body Mass Index (BMI) 35.6 Weight Status Obese GI Symptoms GI Symptoms None Last BM 0 Difficult in: None Skin Integrity/Comment: right foot wound-acute on chronic wuond Current %PO Good (75-100%) Estimated Nutritional Goals BEE in Kcals: Adj wt of IBW Calories/Kcals/Kg 25-30 Kcals Calculated 1431-0333 Protein: Adj wt of IBW Protein g/k Protein Calculated 99 Fluid: ml 2475-2970ml (1ml/kcal) Nutritional Problem 1. Problem Problem increased nutrition needs ( protein( Etiology increased metabolic demand for wound healing Signs/Symptoms: acute on chronic wound on right foot Malnutrition Alert Protein-Calorie Malnutrition N/A Is there a minimum of two criteria No selected? Query Text:Check all the applicable criteria. A minimum of two criteria are recommended for diagnosis of either severe or non-severe malnutrition. Intervention/Recommendation Comments 1. Continue with current diet as ordered. 2. Monitor PO intake, wt, labs and skin integrity 3. F/U as low risk in 7 dyas, 01/19, PO check 01/14 Expected Outcomes/Goals Expected Outcomes/Goals 1. PO intake to meet at least 75% of nutritional needs. 2. Wt stability, skin to remain intact, labs to approach WNL.
[2018-01-16] MEDS: Multivitamin w/ Minerals Tab PO SCH (10:17)
[2018-01-16] MEDS: Benztropine 1 MG TAB PO SCH ×2 (10:17→16:10)
[2018-01-16] MEDS: risperiDONE 4 mg Tab PO SCH ×2 (10:17→16:10)
--- NOTE | 2018-01-16 17:13 | Progress Notes ---
DATE: 01/16/2018 SUBJECTIVE: Staff was spoken to. The patient is interviewed. Mood is noted to be irritable. Affect is constricted. The patient is stating that she could not bear it out why he cannot go back to the place. Impulsivity is a concern. It seems to be resolving at this time. The patient's insight seems to be limited. Coping skills at this time are noted to be improving. ASSESSMENT: The patient is stabilizing. PLAN: To continue the patient with the current medications and follow. [facility]# [id number]
[2018-01-17] MEDS: Benztropine 1 MG TAB PO SCH ×2 (08:33→17:01)
[2018-01-17] MEDS: Multivitamin w/ Minerals Tab PO SCH (08:33)
[2018-01-17] MEDS: risperiDONE 4 mg Tab PO SCH ×2 (08:33→17:01)
--- NOTE | 2018-01-17 13:31 | General Progress Note ---
Subjective - Review of Systems Service Date: 01/17/18 Subjective: I want go home Objective - Results Result Diagrams: 01/12/18 07:00 01/12/18 07:00 Recent Labs: Laboratory Last Values WBC 6.7 Th/cmm (4.8-10.8) 01/12/18 07:00 RBC 4.45 Mil/cmm (4.30-5.70) 01/12/18 07:00 Hgb 13.8 gm/dL (12-16) 01/12/18 07:00 Hct 40.7 % (41.0-60) L 01/12/18 07:00 MCV 91.3 fl (80-99) 01/12/18 07:00 MCH 30.9 pg (26.0-30.0) H 01/12/18 07:00 MCHC Differential 33.9 pg (28.0-36.0) 01/12/18 07:00 RDW 12.3 % (11.5-20.0) 01/12/18 07:00 Plt Count 269 Th/cmm (150-400) 01/12/18 07:00 MPV 7.2 fl 01/12/18 07:00 Neutrophils % 58.7 % (40.0-80.0) 01/12/18 07:00 Lymphocytes % 30.5 % (20.0-50.0) 01/12/18 07:00 Monocytes % 8.3 % (2.0-10.0) 01/12/18 07:00 Eosinophils % 2.0 % (0.0-5.0) 01/12/18 07:00 Basophils % 0.5 % (0.0-2.0) 01/12/18 07:00 PT 9.5 SECONDS (9.5-11.5) 01/11/18 19:35 INR 0.91 (0.5-1.4) 01/11/18 19:35 PTT (Actin FS) 28.0 SECONDS (26.0-38.0) 01/11/18 19:35 Sodium 135 mEq/L (136-145) L 01/12/18 07:00 Potassium 3.4 mEq/L (3.5-5.1) L 01/12/18 07:00 Chloride 100 mEq/L (98-107) 01/12/18 07:00 Carbon Dioxide 28.7 mEq/L (21.0-31.0) 01/12/18 07:00 Anion Gap 9.7 (7.0-16.0) 01/12/18 07:00 BUN 9 mg/dL (7-25) 01/12/18 07:00 Creatinine 0.8 mg/dL (0.7-1.3) 01/12/18 07:00 Est GFR ( Amer) > 60.0 ml/min (>90) 01/12/18 07:00 Est GFR (Non-Af Amer) > 60.0 ml/min 01/12/18 07:00 BUN/Creatinine Ratio 11.3 01/12/18 07:00 Glucose 116 mg/dL (70-105) H 01/12/18 07:00 Calcium 9.6 mg/dL (8.6-10.3) 01/12/18 07:00 Total Bilirubin 0.5 mg/dL (0.3-1.0) 01/12/18 07:00 AST 16 U/L (13-39) 01/12/18 07:00 ALT 11 U/L (7-52) 01/12/18 07:00 Alkaline Phosphatase 46 U/L (34-104) 01/12/18 07:00 C-Reactive Protein 4.2 mg/dL (0.0-0.9) H 01/11/18 19:35 Total Protein 7.1 gm/dL (6.0-8.3) 01/12/18 07:00 Albumin 4.3 gm/dL (4.2-5.5) 01/12/18 07:00 Globulin 2.8 gm/dL 01/12/18 07:00 Albumin/Globulin Ratio 1.5 (1.0-1.8) 01/12/18 07:00 TSH 2.10 uIU/ml (0.34-5.60) 01/12/18 07:00 - Physical Exam Vitals and I&O: Vital Signs Temp 97.9 F 01/17/18 06:09 Pulse 77 01/17/18 07:37 Resp 18 01/17/18 07:37 BP 118/61 01/17/18 06:09 Pulse Ox 96 01/17/18 07:37 Intake & Output 01/16/18 01/17/1801/17/18 18:59 06:59 18:59 Intake Total 1200 480 Balance 1200 480 Intake: Oral 1200 480 Other: # Voids 3 1 # Bowel Movements 0 Active Medications: Current Medications Acetaminophen (Tylenol Extra Strength) 500 mg PO Q4HR PRN PRN Reason: MILD PAIN Stop: 03/11/18 22:36 Last Admin: 01/14/18 19:05 Dose: 500 mg Al Hydrox/Mg Hydrox/Simethicone (Maalox) 30 ml PO Q4H PRN PRN Reason: Heartburn Stop: 03/11/18 22:36 Albuterol/Ipratropium (Duoneb Neb) 3 ml HHN Q4HR PRN PRN Reason: COPD Stop: 03/11/18 22:36 Last Admin: 01/12/18 21:55 Dose: 3 ml Artificial Tears (Artificial Tears Ophth Soln) 1 drop EACH EYE Q4HR PRN PRN Reason: Dry Eye Stop: 03/12/18 11:03 Last Admin: 01/14/18 09:00 Dose: 1 drop Ascorbic Acid (Vitamin C) 500 mg PO BID [facility] Stop: 03/12/18 08:59 Last Admin: 01/17/18 08:33 Dose: 500 mg Aspirin (Ecotrin) 81 mg PO DAILY [facility] Stop: 03/12/18 08:59 Last Admin: 01/17/18 08:33 Dose: 81 mg Baclofen (Lioresal) 10 mg PO QID [facility] Stop: 03/12/18 08:59 Last Admin: 01/17/18 08:34 Dose: 10 mg Benztropine Mesylate (Cogentin) 1 mg PO BID [facility] Stop: 03/12/18 08:59 Last Admin: 01/17/18 08:33 Dose: 1 mg Bisacodyl (Dulcolax 10 Mg Supp) 10 mg RC DAILY PRN PRN Reason: Constipation Stop: 03/11/18 22:36 Magnesium Hydroxide (Milk Of Magnesia) 30 ml PO DAILY PRN PRN Reason: Constipation Stop: 03/11/18 22:36 Naproxen (Naprosyn) 250 mg PO Q4H PRN PRN Reason: MOD PAIN Stop: 03/11/18 22:36 Niacin (Vitamin B3) 500 mg PO HS [facility] Stop: 03/12/18 20:59 Last Admin: 01/16/18 21:13 Dose: 500 mg Oxcarbazepine (Trileptal) 300 mg PO Q12HR HERMILO PRN Reason: Protocol Stop: 03/17/18 08:59 Last Admin: 01/17/18 08:34 Dose: 300 mg Risperidone (Risperdal) 4 mg PO BID HERMILO PRN Reason: Protocol Stop: 03/12/18 08:59 Last Admin: 01/17/18 08:33 Dose: 4 mg Trazodone HCl (Desyrel) 50 mg PO HS HERMILO PRN Reason: Protocol Stop: 03/12/18 20:59 Last Admin: 01/16/18 21:13 Dose: 50 mg Zolpidem Tartrate (Ambien) 5 mg PO HS PRN PRN Reason: Insomnia Stop: 03/11/18 21:04 Last Admin: 01/15/18 20:25 Dose: 5 mg General: Alert, Other (Confused) HEENT: Atraumatic, PERRLA Neck: Supple Cardiovascular: Regular rate Lungs: Clear to auscultation Abdomen: Bowel sounds, Soft Neurological: Normal gait Skin: Other (Warm and dry) Psych/Mental Status: Other (Confused, not oriented) Assessment/Plan - Problem List Patient Problems: All Active Problems AGGITATION AND DISRUPTIVE BEHAVIOR (Acute) - Assessment Assessment: Current Active Problems Problem Status Onset AGGITATION AND DISRUPTIVE BEHAVIOR Acute Patient is awake, alert, calm. Dx: Increased in agitation, Psychosis, schizophrenia Asthma, Obesity. - Plan Plan: Patient is under Psychiatric care, continue with SNF meds, Will continue to monitor. Nutritional Asmnt/Malnutr-PDOC - Dietary Evaluation Malnutrition Findings (Please click <Entered> for more info): Nutritional Asmnt/Malnutrition Start: 01/12/18 17: 19 Text: Status: Complete Freq: Document 01/12/18 17:19 LCHENG (Rec: 01/12/18 17:25 [email or web address]) Nutritional Asmnt/Malnutrition Patient General Information Nutritional Screening Moderate Risk Consult Pertinent Medical Hx/Surgical Hx schizophrenia, OA, weakness, asthma Subjective Information Consult received for wound. Pt seen resting in bed at time of visit. Per EMR, PO intake 100% so fat. Spoke with RN, pt has no problem of eating. Current Diet Order/ Nutrition Support [facility] soft chopped Pertinent Medications cit C, vit B3 Pertinent Labs 01/12 Na 135, K 3.4, glucose 116 Nutritional Hx/Data Height 1.91 m Height (Calculated Centimeters) 190.5 Current Weight (lbs) 129.274 kg Weight (Calculated Kilograms) 129.3 Weight (Calculated Grams) 748035.8 [place] Body Weight 196 Body Mass Index (BMI) 35.6 Weight Status Obese GI Symptoms GI Symptoms None Last BM 0 Difficult in: None Skin Integrity/Comment: right foot wound-acute on chronic wuond Current %PO Good (75-100%) Estimated Nutritional Goals BEE in Kcals: Adj wt of IBW Calories/Kcals/Kg 25-30 Kcals Calculated 2845-0135 Protein: Adj wt of IBW Protein g/k Protein Calculated 99 Fluid: ml 2475-2970ml (1ml/kcal) Nutritional Problem 1. Problem Problem increased nutrition needs ( protein( Etiology increased metabolic demand for wound healing Signs/Symptoms: acute on chronic wound on right foot Malnutrition Alert Protein-Calorie Malnutrition N/A Is there a minimum of two criteria No selected? Query Text:Check all the applicable criteria. A minimum of two criteria are recommended for diagnosis of either severe or non-severe malnutrition. Intervention/Recommendation Comments 1. Continue with current diet as ordered. 2. Monitor PO intake, wt, labs and skin integrity 3. F/U as low risk in 7 dyas, 01/19, PO check 01/14 Expected Outcomes/Goals Expected Outcomes/Goals 1. PO intake to meet at least 75% of nutritional needs. 2. Wt stability, skin to remain intact, labs to approach WNL.
--- NOTE | 2018-01-18 01:39 | Progress Notes ---
DATE: 01/17/2018 SUBJECTIVE: Staff was spoken to. The patient is interviewed. Mood is noted to be anxious and depressed. Affect is constricted. Insight and judgment noted to be improving. Impulse control seems to be fair. No side effects to the medications are noted. The patient has been able to verbalize the concerns rather than to act out. The patient is not that intrusive. No paranoid delusions are noted. The patient is willing to comply with the treatment. ASSESSMENT: The patient is stabilizing. PLAN: To discharge the patient today for followup on outpatient basis. JOB# [id number]
[2018-01-18] MEDS: Benztropine 1 MG TAB PO SCH (09:04)
[2018-01-18] MEDS: risperiDONE 4 mg Tab PO SCH (09:04)
[2018-01-18] MEDS: Multivitamin w/ Minerals Tab PO SCH (09:04)
--- NOTE | 2018-01-18 09:39 | General Progress Note ---
Subjective - Review of Systems Service Date: 01/18/18 Subjective: I want go home Objective - Results Result Diagrams: 01/12/18 07:00 01/12/18 07:00 Recent Labs: Laboratory Last Values WBC 6.7 Th/cmm (4.8-10.8) 01/12/18 07:00 RBC 4.45 Mil/cmm (4.30-5.70) 01/12/18 07:00 Hgb 13.8 gm/dL (12-16) 01/12/18 07:00 Hct 40.7 % (41.0-60) L 01/12/18 07:00 MCV 91.3 fl (80-99) 01/12/18 07:00 MCH 30.9 pg (26.0-30.0) H 01/12/18 07:00 MCHC Differential 33.9 pg (28.0-36.0) 01/12/18 07:00 RDW 12.3 % (11.5-20.0) 01/12/18 07:00 Plt Count 269 Th/cmm (150-400) 01/12/18 07:00 MPV 7.2 fl 01/12/18 07:00 Neutrophils % 58.7 % (40.0-80.0) 01/12/18 07:00 Lymphocytes % 30.5 % (20.0-50.0) 01/12/18 07:00 Monocytes % 8.3 % (2.0-10.0) 01/12/18 07:00 Eosinophils % 2.0 % (0.0-5.0) 01/12/18 07:00 Basophils % 0.5 % (0.0-2.0) 01/12/18 07:00 PT 9.5 SECONDS (9.5-11.5) 01/11/18 19:35 INR 0.91 (0.5-1.4) 01/11/18 19:35 PTT (Actin FS) 28.0 SECONDS (26.0-38.0) 01/11/18 19:35 Sodium 135 mEq/L (136-145) L 01/12/18 07:00 Potassium 3.4 mEq/L (3.5-5.1) L 01/12/18 07:00 Chloride 100 mEq/L (98-107) 01/12/18 07:00 Carbon Dioxide 28.7 mEq/L (21.0-31.0) 01/12/18 07:00 Anion Gap 9.7 (7.0-16.0) 01/12/18 07:00 BUN 9 mg/dL (7-25) 01/12/18 07:00 Creatinine 0.8 mg/dL (0.7-1.3) 01/12/18 07:00 Est GFR ( Amer) > 60.0 ml/min (>90) 01/12/18 07:00 Est GFR (Non-Af Amer) > 60.0 ml/min 01/12/18 07:00 BUN/Creatinine Ratio 11.3 01/12/18 07:00 Glucose 116 mg/dL (70-105) H 01/12/18 07:00 Calcium 9.6 mg/dL (8.6-10.3) 01/12/18 07:00 Total Bilirubin 0.5 mg/dL (0.3-1.0) 01/12/18 07:00 AST 16 U/L (13-39) 01/12/18 07:00 ALT 11 U/L (7-52) 01/12/18 07:00 Alkaline Phosphatase 46 U/L (34-104) 01/12/18 07:00 C-Reactive Protein 4.2 mg/dL (0.0-0.9) H 01/11/18 19:35 Total Protein 7.1 gm/dL (6.0-8.3) 01/12/18 07:00 Albumin 4.3 gm/dL (4.2-5.5) 01/12/18 07:00 Globulin 2.8 gm/dL 01/12/18 07:00 Albumin/Globulin Ratio 1.5 (1.0-1.8) 01/12/18 07:00 TSH 2.10 uIU/ml (0.34-5.60) 01/12/18 07:00 - Physical Exam Vitals and I&O: Vital Signs Temp 98.1 F 01/18/18 05:35 Pulse 70 01/18/18 05:35 Resp 20 01/18/18 05:35 BP 130/56 01/18/18 05:35 Pulse Ox 97 01/18/18 05:35 Intake & Output 01/17/18 01/18/1801/18/18 18:59 06:59 18:59 Intake Total 240 Balance 240 Intake: Oral 240 Other: # Voids 1 Active Medications: Current Medications Acetaminophen (Tylenol Extra Strength) 500 mg PO Q4HR PRN PRN Reason: MILD PAIN Stop: 03/11/18 22:36 Last Admin: 01/14/18 19:05 Dose: 500 mg Al Hydrox/Mg Hydrox/Simethicone (Maalox) 30 ml PO Q4H PRN PRN Reason: Heartburn Stop: 03/11/18 22:36 Albuterol/Ipratropium (Duoneb Neb) 3 ml HHN Q4HR PRN PRN Reason: COPD Stop: 03/11/18 22:36 Last Admin: 01/12/18 21:55 Dose: 3 ml Artificial Tears (Artificial Tears Ophth Soln) 1 drop EACH EYE Q4HR PRN PRN Reason: Dry Eye Stop: 03/12/18 11:03 Last Admin: 01/14/18 09:00 Dose: 1 drop Ascorbic Acid (Vitamin C) 500 mg PO BID [facility] Stop: 03/12/18 08:59 Last Admin: 01/18/18 09:04 Dose: 500 mg Aspirin (Ecotrin) 81 mg PO DAILY [facility] Stop: 03/12/18 08:59 Last Admin: 01/18/18 09:04 Dose: 81 mg Baclofen (Lioresal) 10 mg PO QID [facility] Stop: 03/12/18 08:59 Last Admin: 01/18/18 09:04 Dose: 10 mg Benztropine Mesylate (Cogentin) 1 mg PO BID [facility] Stop: 03/12/18 08:59 Last Admin: 01/18/18 09:04 Dose: 1 mg Bisacodyl (Dulcolax 10 Mg Supp) 10 mg RC DAILY PRN PRN Reason: Constipation Stop: 03/11/18 22:36 Magnesium Hydroxide (Milk Of Magnesia) 30 ml PO DAILY PRN PRN Reason: Constipation Stop: 03/11/18 22:36 Naproxen (Naprosyn) 250 mg PO Q4H PRN PRN Reason: MOD PAIN Stop: 03/11/18 22:36 Niacin (Vitamin B3) 500 mg PO HS [facility] Stop: 03/12/18 20:59 Last Admin: 01/17/18 21:12 Dose: 500 mg Oxcarbazepine (Trileptal) 300 mg PO Q12HR HERMILO PRN Reason: Protocol Stop: 03/17/18 08:59 Last Admin: 01/18/18 09:04 Dose: 300 mg Risperidone (Risperdal) 4 mg PO BID HERMILO PRN Reason: Protocol Stop: 03/12/18 08:59 Last Admin: 01/18/18 09:04 Dose: 4 mg Trazodone HCl (Desyrel) 50 mg PO HS HERMILO PRN Reason: Protocol Stop: 03/12/18 20:59 Last Admin: 01/17/18 21:12 Dose: 50 mg Zolpidem Tartrate (Ambien) 5 mg PO HS PRN PRN Reason: Insomnia Stop: 03/11/18 21:04 Last Admin: 01/15/18 20:25 Dose: 5 mg General: Alert, Other (Confused) HEENT: Atraumatic, PERRLA Neck: Supple Cardiovascular: Regular rate Lungs: Clear to auscultation Abdomen: Bowel sounds, Soft Neurological: Normal gait Skin: Other (Warm and dry) Psych/Mental Status: Other (Confused, not oriented) Assessment/Plan - Problem List Patient Problems: All Active Problems AGGITATION AND DISRUPTIVE BEHAVIOR (Acute) - Assessment Assessment: Current Active Problems Problem Status Onset AGGITATION AND DISRUPTIVE BEHAVIOR Acute Patient is awake, alert, calm. Dx: Increased in agitation, Psychosis, schizophrenia Asthma, Obesity. - Plan Plan: Patient is under Psychiatric care, continue with SNF meds, Will continue to monitor. Nutritional Asmnt/Malnutr-PDOC - Dietary Evaluation Malnutrition Findings (Please click <Entered> for more info): Nutritional Asmnt/Malnutrition Start: 01/12/18 17: 19 Text: Status: Complete Freq: Document 01/12/18 17:19 LCHENG (Rec: 01/12/18 17:25 LCHENG [id number]) Nutritional Asmnt/Malnutrition Patient General Information Nutritional Screening Moderate Risk Consult Pertinent Medical Hx/Surgical Hx schizophrenia, OA, weakness, asthma Subjective Information Consult received for wound. Pt seen resting in bed at time of visit. Per EMR, PO intake 100% so fat. Spoke with RN, pt has no problem of eating. Current Diet Order/ Nutrition Support mec soft chopped Pertinent Medications cit C, vit B3 Pertinent Labs 01/12 Na 135, K 3.4, glucose 116 Nutritional Hx/Data Height 1.91 m Height (Calculated Centimeters) 190.5 Current Weight (lbs) 129.274 kg Weight (Calculated Kilograms) 129.3 Weight (Calculated Grams) 542059.8 [place] Body Weight 196 Body Mass Index (BMI) 35.6 Weight Status Obese GI Symptoms GI Symptoms None Last BM 0 Difficult in: None Skin Integrity/Comment: right foot wound-acute on chronic wuond Current %PO Good (75-100%) Estimated Nutritional Goals BEE in Kcals: Adj wt of IBW Calories/Kcals/Kg 25-30 Kcals Calculated [id number] Protein: Adj wt of IBW Protein g/k Protein Calculated 99 Fluid: ml 2475-2970ml (1ml/kcal) Nutritional Problem 1. Problem Problem increased nutrition needs ( protein( Etiology increased metabolic demand for wound healing Signs/Symptoms: acute on chronic wound on right foot Malnutrition Alert Protein-Calorie Malnutrition N/A Is there a minimum of two criteria No selected? Query Text:Check all the applicable criteria. A minimum of two criteria are recommended for diagnosis of either severe or non-severe malnutrition. Intervention/Recommendation Comments 1. Continue with current diet as ordered. 2. Monitor PO intake, wt, labs and skin integrity 3. F/U as low risk in 7 dyas, 01/19, PO check 01/14 Expected Outcomes/Goals Expected Outcomes/Goals 1. PO intake to meet at least 75% of nutritional needs. 2. Wt stability, skin to remain intact, labs to approach WNL.
--- NOTE | 2018-01-18 20:53 | Discharge Summary ---
DATE OF DISCHARGE: 01/18/2018 IDENTIFYING DATA: The patient is a 52-year-old male, resident of [facility]. JUSTIFICATION OF HOSPITALIZATION: The patient is admitted here on a voluntary basis in view of his out of control behaviors. CHIEF COMPLAINT: "Someone says something and I got upset and bite them out." DIAGNOSIS AT THE TIME OF ADMISSION: 1. AXIS I: Schizoaffective disorder. 2. AXIS II: None. 3. AXIS III: As per Dr. Jefferson. HISTORY OF PRESENT ILLNESS: Please refer to 01/11/2018 dictation done by me. Physical examination was done by Dr. Jefferson and lab studies of the hospitalization also have been reviewed by him. HOSPITAL COURSE AND RESPONSE TO TREATMENT: The patient has been observed on the inpatient unit, provided with supportive psychotherapy. The patient has been closely monitored and patient has been continued on the oxcarbazepine, which is increased to 300 mg twice a day and Risperdal was given 4 mg twice a day and trazodone 50 mg at bedtime. With these medications, the patient has been observed and was noted to be doing fairly well and patient is noted to be less impulsive and hence he was discharged to be followed up on an outpatient basis. MENTAL STATUS EXAMINATION: At the time of discharge, patient's mood to be anxious. Affect is appropriate. Not suicidal or homicidal. Insight and judgment are improving. Impulse control is noted to be fair. The patient has been willing to comply with the treatment. DIAGNOSES AT THE TIME OF DISCHARGE: AXIS I: Schizoaffective disorder. AXIS II: None. AXIS III: As per Dr. Jefferson. AFTERCARE PLAN: The patient is discharged to [facility] to be followed up on an outpatient basis. JOB# [id number]
== END 2018-01-18 10:45 | DRG 885 ==
LOC: ER 12:41 → GERO2 20:54
PROVIDERS: ADMIT Psychiatry & Neurology Psychiatry; ATTEND Psychiatry & Neurology Psychiatry
DX: F25.9 Schizoaffective disorder, unspecified (principal); F29 Unspecified psychosis not due to a substance or known physiological condition; E66.9 Obesity, unspecified; M19.90 Unspecified osteoarthritis, unspecified site; F41.9 Anxiety disorder, unspecified; J45.909 Unspecified asthma, uncomplicated; Z68.35 Body mass index [BMI] 35.0-35.9, adult; Z88.8 Allergy status to other drugs, medicaments and biological substances; Z79.82 Long term (current) use of aspirin
CPT/HCPCS: 36415-UA; 80053-TC; 84443-TC; 85025-TC; 85610-TC; 86141-TC; 90899; 94760; G0410; J1200; J1630; Z7610